=== PATIENT | female | born 1965 | race Caucasian/White ===

== ENCOUNTER 2021-03-25 11:11 | Inpatient (IN) | payer OTHER ==
[~2021-03-25] VITALS: Ht 172.7 cm; Wt 78.9 kg
[2021-03-25 11:44] LABS: HEMOGLOBIN 12.5 gm/dl (12.3-15.3); RED BLOOD COUNT 3.94 M/UL (4.00-5.10); WHITE BLOOD COUNT 10.9 K/UL (4.5-11.0)
[2021-03-25 12:05] LABS: BUN/CREATININE RATIO 15 (0-10)
[2021-03-25] MEDS ORDERED: METOPROLOL SUCC50 MG PO (16:36)
[2021-03-25] MEDS ORDERED: CYCLOBENZAPRINE10 MG PO (16:37)
[2021-03-25] MEDS ORDERED: KLONOPIN0.5 MG PO (16:37)
[2021-03-25] MEDS ORDERED: GABAPENTIN100 MG PO (16:38)
[2021-03-25] MEDS ORDERED: MELATONIN5 M2 PO (16:39)
[2021-03-25] MEDS ORDERED: TYLENOL EXTRA500 MG PO (16:40)
[2021-03-25 22:01] LABS: WHITE BLOOD COUNT 11.1 K/UL (4.5-11.0)
[2021-03-25 22:02] LABS: HEMOGLOBIN 10.5 gm/dl (12.3-15.3); RED BLOOD COUNT 3.29 M/UL (4.00-5.10)
--- NOTE | 2021-03-26 04:02 | NUR ---
03/26/21 0130 BEDREST UP, AMBULATED TO BATHROOM WITHOUT DIFFICULTY, DENIES CHEST PAIN OR DISCOMFORT. CATH SITE INTACT. PATIENT SAT ON COUCH. NO DISTRESS NOTED
[2021-03-26 05:13] LABS: HEMOGLOBIN 10.6 gm/dl (12.3-15.3); RED BLOOD COUNT 3.35 M/UL (4.00-5.10); WHITE BLOOD COUNT 10.9 K/UL (4.5-11.0)
[2021-03-27] MEDS ORDERED: BRILINTA90 MG PO (15:23)
[2021-03-27] MEDS ORDERED: PROTONIX40 MG PO (15:24)
[2021-03-27] MEDS ORDERED: NICODERM CQ1 EAC1 TD (15:46)
[2021-03-27] MEDS ORDERED: LIPITOR80 MG PO (16:09)
== END 2021-03-27 16:32 | disposition home or self-care (01) | DRG 247 ==
LOC: ER1 11:11 → PROG CARE 11:28 → CDU 11:28 → CCU 14:17 → PROG CARE 03-26 13:05
PROVIDERS: Emergency Medicine; ADMIT Internal Medicine Interventional Cardiology
PROC: 027034Z Dilation of Coronary Artery, One Artery with Drug-eluting Intraluminal Device, Percutaneous Approach (ICD-10-PCS; principal; 2021-03-25)
PROC: 4A023N7 Measurement of Cardiac Sampling and Pressure, Left Heart, Percutaneous Approach (ICD-10-PCS; 2021-03-25)
PROC: B2111ZZ Fluoroscopy of Multiple Coronary Arteries using Low Osmolar Contrast (ICD-10-PCS; 2021-03-25)
PROC: B24BZZZ Ultrasonography of Heart with Aorta (ICD-10-PCS; 2021-03-26)
DX: I21.09 ST elevation (STEMI) myocardial infarction involving other coronary artery of anterior wall (principal); I10 Essential (primary) hypertension; Z20.822 Contact with and (suspected) exposure to COVID-19; E78.5 Hyperlipidemia, unspecified; F17.210 Nicotine dependence, cigarettes, uncomplicated; I08.1 Rheumatic disorders of both mitral and tricuspid valves; I48.91 Unspecified atrial fibrillation; F41.9 Anxiety disorder, unspecified; Z90.710 Acquired absence of both cervix and uterus; Z90.49 Acquired absence of other specified parts of digestive tract; Z82.49 Family history of ischemic heart disease and other diseases of the circulatory system; Z88.0 Allergy status to penicillin; Z79.01 Long term (current) use of anticoagulants
CPT/HCPCS: ECHO; 71045; 80048; 80053; 80061; 82550; 82553; 83874; 84484; 85025; 85027; 85347; 85610; 85730; 93005; 93306; 99152; 99153; 99285; C1725; C1757; C1769; C1874; C1887; C1894; C9600; J0461; J1170; J1644; J2250; J2270; J2405; J3010; J3246; J7030; J7040; Q9965; U0002

== ENCOUNTER → 2021-07-20 | Outpatient (CLI) | payer OTHER ==
[~2021-07-20] MED LIST: BRILINTA90 MG PO; CYCLOBENZAPRINE10 MG PO; GABAPENTIN100 MG PO; KLONOPIN0.5 MG PO; LIPITOR80 MG PO; MELATONIN5 M2 PO; METOPROLOL SUCC50 MG PO; NICODERM CQ1 EAC1 TD; PROTONIX40 MG PO; TYLENOL EXTRA500 MG PO
== END ==
LOC: HEART 5 12:50
DX: I21.09 ST elevation (STEMI) myocardial infarction involving other coronary artery of anterior wall (principal); I25.10 Atherosclerotic heart disease of native coronary artery without angina pectoris; I08.3 Combined rheumatic disorders of mitral, aortic and tricuspid valves
CPT/HCPCS: 93306

== ENCOUNTER → 2021-09-11 | Outpatient (CLI) | payer OTHER | LOC: CT 09-08 13:00 | DX: I70.213 Atherosclerosis of native arteries of extremities with intermittent claudication, bilateral legs (principal) | CPT/HCPCS: 75635; Q9967 ==

== ENCOUNTER → 2021-11-08 | Outpatient (CLI) | payer SELFPAY | LOC: CARD REHAB 16:13 | DX: I21.09 ST elevation (STEMI) myocardial infarction involving other coronary artery of anterior wall (principal) | CPT/HCPCS: 93797 ==